=== PATIENT | female | born 1940 | race Caucasian/White ===

== ENCOUNTER → 2017-06-14 11:33 | Outpatient (CLI) | payer MEDICARE, SELFPAY ==
[2017-06-14 13:58] LABS: Vitamin B12 575 pg/mL (211-911)
[2017-06-14 14:00] LABS: Anion Gap 8 (5-15); Chloride 105 mmol/L (98-107); Sodium Level 141 mmol/L (136-145); Thyroid Stim Hormone (TSH) 3.46 uIU/mL (0.358-3.74)
[2017-06-21 02:33] LABS: Rapid Plasmin Reagin (RPR) NONREACTIVE (NONREACTIVE)
== END ==
PROVIDERS: Visit Provider Psychiatry & Neurology Neurology
DX: F03.90 Unspecified dementia, unspecified severity, without behavioral disturbance, psychotic disturbance, mood disturbance, and anxiety (principal)
CPT/HCPCS: 36415; 80051; 82607; 84443; 86592

== ENCOUNTER → 2017-09-16 07:14 | Outpatient (CLI) | payer MEDICARE, SELFPAY ==
--- NOTE | 2017-09-16 07:00 | PET_ITS ---
EXAMINATION: FDG PET/CT - Brain INDICATIONS: A 77-year-old female with history of cognitive impairment, memory loss. COMPARISON EXAMINATION: None available TECHNIQUE: Following the intravenous administration of 8.98 mCi of F-18 deoxyglucose via the right hand, multiplanar image acquisitions of the head obtained at one hour post radiopharmaceutical administration contemporaneously interpreted with the current CT of the head dated 09/16/17 via coregistration reveal: SERUM GLUCOSE LEVEL: 87 mg/dl. HEIGHT: 64 inches. WEIGHT: 155 lbs. FINDINGS: 1. There is decreased glucose metabolism manifest in the left parietal and left temporal cerebral cortex on visual inspection. 2. Otherwise preserved glucose metabolism is defined in the bilateral cerebellar hemispheres, basal ganglia and remaining cerebral cortical structures. PET/PET Brain Metabolic Eval IMPRESSION: 1. 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 ([place], Molecular Imaging and Biology 4:239, 2004). Electronic Signature Josue Biswas D.O. Electronically Signed: Josue Biswas DO at 23:11 EDT Tel , Service support ,
== END ==
PROVIDERS: Visit Provider Psychiatry & Neurology Neurology
DX: F03.90 Unspecified dementia, unspecified severity, without behavioral disturbance, psychotic disturbance, mood disturbance, and anxiety (principal); Z85.3 Personal history of malignant neoplasm of breast
CPT/HCPCS: 78608; A9552